=== PATIENT | male | born 2000 | race Two or more races ===

== ENCOUNTER 2023-10-13 19:28 | Emergency (ER) | payer MEDICAID, OTHER ==
[~2023-10-13] VITALS: Ht 177.8 cm; Wt 61.4 kg
[2023-10-14 03:38] VITALS: BP 128/70; PULSE 76; RESP 18; TEMP 98.7
[2023-10-14 03:39] VITALS: O2SAT 99
== END 2023-10-14 03:49 | disposition home or self-care (01) ==
LOC: ER 19:28
DX: S63.682A Other sprain of left thumb, initial encounter (principal); Z87.891 Personal history of nicotine dependence; W01.0XXA Fall on same level from slipping, tripping and stumbling without subsequent striking against object, initial encounter; Y93.89 Activity, other specified; Y92.89 Other specified places as the place of occurrence of the external cause; Y99.8 Other external cause status
CPT/HCPCS: 73140